=== PATIENT | male | born 1980 | race Caucasian/White ===

== ENCOUNTER 2019-10-31 15:17 | Outpatient (CLI) | payer OTHER ==
--- NOTE | 2019-10-31 15:43 | RAD ---
THREE VIEWS THORACIC SPINE: COMPARISON: None. HISTORY: Back pain. FINDINGS: Three views of the thoracic spine show normal height and alignment of the vertebral bodies and interv ertebral disks without fracture or subluxation. No degenerative changes are seen. IMPRESSION: Unremarkable exam. POS: [facility]
--- NOTE | 2019-10-31 15:58 | RAD ---
Exam: Cervical spine 4 views HISTORY: Neck pain. FINDINGS: Visualized odontoid process and as well as the lateral masses of C1 and C2 are unremarkable On the AP projection, no malalignment Predental space is normal. No prevertebral soft tissue swelling Cervical spine vertebral body heights are maintained. No fracture. Mild loss of disc space height at C5-C6. Cervicothoracic junction is unremarkable IMPRESSION: Mild degenerative change at C5-C6
== END 2019-10-31 15:18 | disposition home or self-care (01) ==
LOC: BICRAD 15:17
PROVIDERS: ATTEND Internal Medicine
DX: M54.2 Cervicalgia (principal); M54.6 Pain in thoracic spine; M47.812 Spondylosis without myelopathy or radiculopathy, cervical region
CPT/HCPCS: 72040; 72072

== ENCOUNTER 2020-06-11 06:04 | Day surgery (SDC) | payer OTHER ==
[2020-06-06 11:08] VITALS: BMI 29.4
--- NOTE | 2020-06-10 09:51 | HP ---
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 There has been no injury. PAST MEDICAL HISTORY: The patient is otherwise in good health. Has no major medical problems. 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 MEDICATIONS: He is currently on no routine medications. Prednisone causes hiccups. ALLERGIES: HE IS ALLERGIC TO FRUIT, MELONS, AVOCADOS, AND BANANAS. FAMILY HISTORY: Otherwise, unremarkable. SOCIAL HISTORY: Otherwise, unremarkable. REVIEW OF SYSTEMS: Otherwise, unremarkable. PHYSICAL EXAMINATION: GENERAL: Reveals a healthy male. HEENT: Unremarkable. NECK: Supple. CHEST: Clear. HEART: Regular rate and rhythm. ABDOMEN: Soft and nontender. RECTAL AND GENITAL: Deferred. EXTREMITIES: Pertinent findings of the left index finger, there is a 5 x 5 mm nodule on the volar aspect of the PIP flexion crease of the index finger. It is firm and slightly tender. There is full range of motion. It does not appear to be attached to the tendon. NEUROVASCULAR: Intact. There is a negative Tinel's sign over the mass. IMAGING DATA: X-rays of the index finger are normal. 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 PLAN: Surgical excision. The nature of the surgery, length of recovery, and potential complications such as infection, loss of motion, incomplete relief, digital nerve injury, recurrence and need for additional treatment and repeat surgery were discussed in detail. Job ID: [id number] [facility]
[2020-06-11] MEDS ORDERED: Fentanyl 100 MCG/2 ML VIAL ONE (06:16)
[2020-06-11] MEDS ORDERED: Midazolam HCl 2 mg/2 ml Vial ONE (06:16)
[2020-06-11] MEDS ORDERED: Famotidine/PF 20 mg/2ml Vial ONE (06:17)
[2020-06-11] MEDS ORDERED: Bupivacaine PF 0.5% 30 ML VIAL ONE (06:32)
[2020-06-11] MEDS ORDERED: Metoclopramide HCl 10 MG/2 ML VIAL ONE (09:02)
[2020-06-11] MEDS ORDERED: Lidocaine 1% PF 5 ML VIAL ONE (09:02)
[2020-06-11] MEDS ORDERED: Ondansetron PF 4 MG/2 ML Vial ONE (09:02)
[2020-06-11] MEDS ORDERED: PROPOFOL 200 MG/20 ML VIAL ONE (09:02)
[2020-06-11] MEDS ORDERED: Ketorolac Tromethamine 30 MG/ML VIAL ONE (09:02)
[2020-06-11] MEDS ORDERED: Dexamethasone 20 MG/5 ML VIAL ONE (09:02)
--- NOTE | 2020-06-11 10:28 | OP ---
DATE OF PROCEDURE: 06/11/2020 ANESTHESIA: General. PREOPERATIVE DIAGNOSIS: Soft tissue mass, left index finger. POSTOPERATIVE DIAGNOSIS: Soft tissue mass, left index finger. PROCEDURE PERFORMED: Excision of soft tissue mass of flexor tendon sheath, left index finger. OPERATIVE FINDINGS: There was a benign-appearing soft tissue mass coming off the flexor tendon of the left index finger. I cannot quite tell whether this was a cyst or a benign solid tumor. It was coming off the flexor tendon sheath and was intimately associated with the digital nerve, which had to be retracted to get to the mass. The mass was excised in its entirety and sent for pathology. DESCRIPTION OF PROCEDURE: After satisfactory anesthesia was induced in supine position, the patient was prepped and draped in the routine manner. The left arm was elevated and exsanguinated with an Esmarch bandage and tourniquet inflated to 250 mmHg. A 1 cm incision was made over the ulnar aspect of the index finger just proximal to the PIP flexion crease, carried down through the subcutaneous tissues. Bleeding points were controlled with Bovie cautery. The digital nerve was retracted. Using sharp and blunt dissection, the mass was excised in its entirety and sent to Pathology. There appeared to be complete excision of the mass. The wound was thoroughly irrigated. A metacarpal block was accomplished with 0.5% Marcaine plain 10 mL. The skin was closed with interrupted 3-0 nylon. A sterile bulky compressive dressing was applied. The tourniquet deflated after 18 minutes. The hand promptly pinked up. The patient was awakened and taken to the recovery room in stable condition. There were no apparent intraoperative complications. The estimated blood loss was negligible. The patient will be discharged home in a satisfactory condition, instructed on ice and elevation, and given written wound care instructions. He has tramadol at home for pain. He will be rechecked in my office in 10 to 14 days or sooner if there are any problems prior to that time. Job ID: [id number] [facility]
== END 2020-06-11 09:15 | disposition home or self-care (01) ==
LOC: SDC 06:04
PROVIDERS: ATTEND Orthopaedic Surgery
PROC: 0JBK0ZZ Excision of Left Hand Subcutaneous Tissue and Fascia, Open Approach (ICD-10-PCS; principal; 2020-06-11)
DX: D16.12 Benign neoplasm of short bones of left upper limb (principal); Z87.891 Personal history of nicotine dependence; Z88.8 Allergy status to other drugs, medicaments and biological substances; Z91.018 Allergy to other foods
CPT/HCPCS: 88305; J0690; J1100; J1885; J2250; J2405; J2704; J2765; J3010; S0020; S0028

== ENCOUNTER 2022-06-15 09:17 | Outpatient (CLI) | payer BC ==
[2022-06-15] MEDS ORDERED: EPINEPHrine 1 MG/ML VIAL ONE (10:15)
[2022-06-15] MEDS ORDERED: Lidocaine 1% MPF 2 ML VIAL ONE (10:15)
[2022-06-15] MEDS ORDERED: Iopamidol 300 61% 50 ML VIAL FS ONE (10:15)
[2022-06-15] MEDS ORDERED: Gadobenate Dimeglumine 529 MG/1 ML (20ML VIAL) ONE (10:15)
[2022-06-15] MEDS ORDERED: Magnevist 469MG/ML 20 ML VIAL ONE (14:08)
== END 2022-06-15 09:18 | disposition home or self-care (01) ==
LOC: RAD 09:17
PROVIDERS: ATTEND Orthopaedic Surgery
DX: M25.511 Pain in right shoulder (principal); M75.121 Complete rotator cuff tear or rupture of right shoulder, not specified as traumatic; S43.431A Superior glenoid labrum lesion of right shoulder, initial encounter
CPT/HCPCS: 23350; A9577; A9579; J0171; Q9967

== ENCOUNTER 2022-07-26 08:02 | Outpatient (CLI) | payer BC, OTHER ==
[2020-06-06 19:43] LABS: SARS-CoV-2 MS2 Positive; SARS-CoV-2 N Gene Negative; SARS-CoV-2 S Gene Negative; SARS-CoV-2 by NAA Not Detected (NotDetected); SARS-CoV-2 orf1ab Negative
[2022-07-26 08:51] LABS: #Eosinphils 0.1 10x3/uL (0.0-0.5); #Monocytes 0.5 10x3/uL (0.0-1.1); #Neutrophils 2.4 10x3/uL (1.5-8.4); %Basophils 0.4 % (0.0-2.0); %Eosinophils 2.5 % (0.0-6.0); %Lymphocytes 42.5 % (18.0-47.0); %Monocytes 9.7 % (0.0-10.0); %Neutrophils 44.7 % (40.0-75.0); Hemoglobin 14.7 g/dL (13.5-17.5); Mean Corpuscular HGB CONC 34.2 g/dL (32.0-36.0); Mean Corpuscular Hemoglobin 29.9 pg (27.0-33.0); Mean Corpuscular Volume 87.6 fl (81.2-95.1); Mean Platelet Volume 8.7 fl (7.4-10.4); Platelet Count 286 10x3/uL (150-450); RBC Distribution Width 12.2 % (11.5-14.5); Red Blood Cell (RBC) Count 4.91 10x6/uL (4.32-5.72); White Blood Cell (WBC) Count 5.3 10x3/uL (3.5-10.5)
== END 2022-07-26 08:03 ==
LOC: LABBT 08:02
PROVIDERS: ATTEND Orthopaedic Surgery
DX: Z01.812 Encounter for preprocedural laboratory examination (principal); M79.89 Other specified soft tissue disorders
CPT/HCPCS: 85025; U0003

== ENCOUNTER 2022-07-28 05:56 | Day surgery (SDC) | payer BC ==
[2022-07-27 10:43] VITALS: BMI 29.1
[2022-07-28] MEDS ORDERED: fentaNYL PF 100 MCG/2 ML SYRINGE ONE (06:26)
[2022-07-28] MEDS ORDERED: Midazolam HCl 2 mg/2 ml Vial ONE (06:26)
[2022-07-28] MEDS ORDERED: Lidocaine 2% 6 ML SYR ONE (06:26)
[2022-07-28] MEDS ORDERED: Lidocaine 1% (PF) 30 ML VIAL ONE (06:51)
[2022-07-28] MEDS ORDERED: EPINEPHrine 1 MG/ML AMP ONE (06:51)
[2022-07-28] MEDS ORDERED: Sodium Chloride 0.9% 100 ML ONE (07:00)
[2022-07-28] MEDS ORDERED: CEFAZOLIN 2 GM VIAL ONE (07:00)
[2022-07-28] MEDS ORDERED: Ropivacaine 0.5% HCl/PF (150 MG/30 ML VIAL) ONE (07:29)
[2022-07-28] MEDS ORDERED: Bupivacaine PF 0.5% 30 ML VIAL ONE (07:29)
[2022-07-28] MEDS ORDERED: FENTANYL 50 MCG/ML 1 ML VIAL SLOW IVP PRN (07:43)
[2022-07-28] MEDS ORDERED: Promethazine HCl 25 MG/ML VIAL IM PRN (07:45)
[2022-07-28] MEDS ORDERED: HYDROcodone/Acetaminophen 5/325 mg Tablet PO PRN ×2 (07:45)
[2022-07-28] MEDS ORDERED: Ondansetron PF 4 MG/2 ML Vial IVP PRN (07:45)
[2022-07-28] MEDS ORDERED: traMADol HCl 50 MG TAB PO PRN ×2 (07:45)
[2022-07-28] MEDS ORDERED: Zolpidem Tartrate 5 MG TAB PO PRN (07:45)
[2022-07-28] MEDS ORDERED: Ropivacaine 0.2% 550 ML 550 ML NERVE BLCK SCH (07:45)
== END 2022-07-28 11:00 | disposition home or self-care (01) ==
LOC: SDC 05:56
PROVIDERS: ATTEND Orthopaedic Surgery
PROC: 0LQ14ZZ Repair Right Shoulder Tendon, Percutaneous Endoscopic Approach (ICD-10-PCS; principal; 2022-07-28)
DX: M75.111 Incomplete rotator cuff tear or rupture of right shoulder, not specified as traumatic (principal); S43.431A Superior glenoid labrum lesion of right shoulder, initial encounter; M65.811 Other synovitis and tenosynovitis, right shoulder; E78.5 Hyperlipidemia, unspecified; G47.33 Obstructive sleep apnea (adult) (pediatric); Z86.16 Personal history of COVID-19; Z87.891 Personal history of nicotine dependence; Z88.8 Allergy status to other drugs, medicaments and biological substances; Z91.018 Allergy to other foods
CPT/HCPCS: A4306; C1713; J0171; J2001; J2250; J2795; J3490; S0020

== ENCOUNTER 2024-07-29 19:55 | Observation (INO) | payer BC ==
[2024-07-29 21:06] LABS: #Basophils Less than 0.03 10x3/uL (0.0-0.2); %Basophils 0.3 % (0.0-1.0); %Eosinophils 1.4 % (0.0-10.0); %Lymphocytes 40.4 % (21.0-51.0); %Monocytes 8.3 % (0.0-10.0); %Neutrophils 49.3 % (42.0-75.0); Hematocrit 44.2 % (42.0-52.0); Hemoglobin 14.9 g/dL (14.0-18.0); Mean Corpuscular HGB CONC 33.7 g/dL (32.0-36.0); Mean Corpuscular Hemoglobin 29.8 pg (27.0-31.0); Mean Corpuscular Volume 88.4 fL (78.0-98.0); Platelet Count 247 10x3/uL (130-400); RBC Distribution Width 11.9 % (11.5-14.5)
[2024-07-29 21:27] LABS: ALT (SGPT) 27 U/L (8-55); AST (SGOT) 24 U/L (5-34); Albumin 4.3 g/dL (3.5-5.0); Alkaline Phosphatase 41 U/L (40-110); Anion Gap 14 mmol/L (10-20); BUN (Urea Nitrogen) 15 mg/dL (8.9-20.6); Bilirubin, Total 0.5 mg/dL (0.2-1.2); Calc. Creatinine Clearance 0 mL/min (70-130); Calcium 8.9 mg/dL (7.8-10.44); Carbon Dioxide 21 mmol/L (22-29); Chloride 104 mmol/L (98-107); Estimated GFR 73; Globulin 2.8 g/dL (2.4-3.5); Glucose 85 mg/dL (70-105); Potassium 3.6 mmol/L (3.5-5.1); Protein, Total 7.1 g/dL (6.0-8.3); Sodium 135 mmol/L (136-145)
[2024-07-29 21:30] LABS: Troponin I Less than 0.010 ng/mL (< 0.028)
[2024-07-29 21:58] VITALS: BMI 25.9
[2024-07-30 00:06] LABS: Troponin I Less than 0.010 ng/mL (< 0.028)
[2024-07-30 01:27] LABS: Troponin I Less than 0.010 ng/mL (< 0.028)
[2024-07-30 05:04] LABS: Cardiac Risk 5.3 (Less than 4.5)
[2024-07-30 07:38] VITALS: BP 141/83; TEMP 97.4
[2024-07-30] MEDS: Enoxaparin 40 MG (0.4 mL) SYRINGE SC SCH (09:43)
[2024-07-30] MEDS: Aspirin Chewable 81 MG TAB PO SCH (09:43)
== END 2024-07-30 10:35 | disposition left against medical advice (07) ==
LOC: ERS 19:55 → 2NO 21:03
PROVIDERS: ADMIT Hospitalist; ATTEND Family Medicine
PROC: B246ZZZ Ultrasonography of Right and Left Heart (ICD-10-PCS; principal; 2024-07-29)
DX: R07.89 Other chest pain (principal); R42 Dizziness and giddiness; Z88.8 Allergy status to other drugs, medicaments and biological substances; R00.1 Bradycardia, unspecified; Z91.018 Allergy to other foods; Z88.5 Allergy status to narcotic agent
CPT/HCPCS: 36415; 80053; 80061; 84443; 84484; 85025; 93005; 93306